=== PATIENT | male | born 1990 | race Two or more races ===

== ENCOUNTER 2019-01-30 17:48 | Emergency (ER) | payer SELFPAY ==
[~2019-01-30] VITALS: Ht 170.2 cm; Wt 68.0 kg
[2019-01-30 17:55] VITALS: BP 142/93
== END 2019-01-30 19:18 | disposition home or self-care (01) ==
LOC: ER 17:48
DX: S01.91XD Laceration without foreign body of unspecified part of head, subsequent encounter (principal); X58.XXXD Exposure to other specified factors, subsequent encounter

== ENCOUNTER 2019-06-08 13:23 | Emergency (ER) | payer SELFPAY ==
[~2019-06-08] VITALS: Ht 165.1 cm; Wt 68.0 kg
[2019-06-08 16:58] LABS: Urine Amorphous Crystal FEW /hpf (None Seen); Urine Bacteria FEW /hpf (None Seen); Urine Blood TRACE /uL (Negative); Urine Specific Gravity 1.018 (1.001-1.035); Urine WBC 499 /hpf (0 - 3)
[2019-06-08 17:05] LABS: Alcohol, Urine < 3.0 mg/dL (0-5); Amphetamine Screen, Urine NEGATIVE (NEGATIVE); Barbiturate Scree,Urine NEGATIVE (NEGATIVE); Benzodiazephine Screen, Urine NEGATIVE (NEGATIVE); Cannabinoid Screen, Urine POSITIVE (NEGATIVE); Cocaine Screen, Urine NEGATIVE (NEGATIVE); Opiate Scree,Urine NEGATIVE (NEGATIVE); Phencyclidine Screen, Urine NEGATIVE (NEGATIVE)
[2019-06-08 17:22] VITALS: BP 122/86
== END 2019-06-08 17:24 | disposition home or self-care (01) ==
LOC: ER 13:27
DX: N39.0 Urinary tract infection, site not specified (principal); F17.210 Nicotine dependence, cigarettes, uncomplicated; F12.10 Cannabis abuse, uncomplicated
CPT/HCPCS: 76870; 80307; 81001